=== PATIENT | male | born 1990 | race Hispanic/Latino ===

== ENCOUNTER 2025-10-04 12:35 | Emergency (ER) | payer OTHER, SELFPAY ==
[~2025-10-04] VITALS: Ht 175.3 cm; Wt 70.9 kg
[~2025-10-04 12:35] MED LIST: MELO15TA28 PO
[2025-10-04 12:40] VITALS: TEMP 97.8
[2025-10-04 16:30] VITALS: BP 119/85
[2025-10-04 16:38] VITALS: O2SAT 100
== END 2025-10-04 16:50 | disposition left against medical advice (07) ==
LOC: M ED 12:35
DX: Z53.21 Procedure and treatment not carried out due to patient leaving prior to being seen by health care provider (principal)